=== PATIENT | female | born 1970 | race American Indian/Alaskan Native ===

== ENCOUNTER → 2022-11-14 10:19 | Outpatient (CLI) | payer OTHER, SELFPAY ==
[2022-11-14 11:45] LABS: Appearance Urine UA CLEAR; Bilirubin Urine UA NEGATIVE (NEGATIVE); Color Urine UA YELLOW; Glucose Urine UA NEGATIVE (Negative); Ketones Urine UA NEGATIVE (NEGATIVE); Leukocyte Esterase Urine UA NEGATIVE (NEGATIVE); Nitrite Urine UA NEGATIVE (Negative); Occult Blood Urine UA TRACE-INTACT (Negative); Protein Urine UA 1+ (Negative); Specific Gravity Urine UA 1.025 (1.000-1.035)
[2022-11-14 11:52] LABS: Add Manual Diff / Slide Review NO; Bacteria Urine None Seen; Basophils Absolute Auto 0 /uL (0-100); Basophils Percent Auto 0.4 % (0-2); Culture Indicated Urine Cult Not Indicated; Eosinophils Absolute Auto 200 /uL (0-450); Hematocrit 42.1 % (36-46); Lymphocytes Absolute Auto 2900 /uL (1100-4500); Lymphocytes Percent Auto 41.9 % (25-40); Mean Corpuscular HGB Conc 33.4 % (30-36); Mean Corpuscular Hemoglobin 31.8 PG (26-34); Mean Corpuscular Volume 95.3 fL (80-100); Monocytes Absolute Auto 500 /uL (0-900); Monocytes Percent Auto 7.1 % (3-14); Neutrophils Absolute Auto 3300 /uL (1500-7000); Neutrophils Percent Auto 47.6 % (50-75); Platelet Count 318 X10^3/uL (150-400); RBC Urine None Seen (0-5/HPF); Red Blood Cell Count 4.42 X10^6/uL (4.0-5.2); Red Cell Distribution Width 13.7 % (11.6-14.8); Urine Comments Microscopic Normal; WBC Urine None Seen (0-5/HPF); White Blood Cell Count 6.9 X10^3/uL (4.5-11.0)
[2022-11-14 12:01] LABS: BUN Creatinine Ratio 11.6 (6-22); Blood Urea Nitrogen 10 mg/dL (7-17); Calcium 9.1 mg/dL (8.4-10.2); Carbon Dioxide 31 mmol/L (22-32); Chloride 99 mmol/L (98-107); Estimated Glomerular Filt Rate > 60 mL/min (>60); Glucose 173 mg/dL (70-100); HEMOLYSIS < 15 (0-50); Potassium 4.7 mmol/L (3.4-5.1); Sodium 139 mmol/L (137-145)
== END ==
PROVIDERS: Referring Provider Orthopaedic Surgery; Visit Provider Orthopaedic Surgery
DX: Z01.818 Encounter for other preprocedural examination (principal); Z01.812 Encounter for preprocedural laboratory examination; N39.0 Urinary tract infection, site not specified
CPT/HCPCS: 36415; 80048; 81001; 85025; 93005; 93010

== ENCOUNTER 2022-12-28 08:54 | Inpatient (IN) | payer OTHER, SELFPAY ==
[2022-12-19 08:43] VITALS: BMI 44.6
[2022-12-28] VITALS (10 sets, daily range): BP systolic 90–134; BP diastolic 50–84; PULSE 75–95; RESP 11–26; TEMP 36.3–36.7; O2SAT 95–98; BMI 44.6
--- NOTE | 2022-12-28 06:00 | DI.RAD.S_ITS ---
PROCEDURE: XR SHOULDER LT 1V INDICATIONS: prosthesis placement TECHNIQUE: 1 views of the shoulder were acquired. COMPARISON: None. FINDINGS: Bones: No fractures or dislocations. No suspicious bony lesions. Visualized ribs appear intact. Normal appearance of the left glenohumeral arthroplasty. Soft tissues: No suspicious soft tissue calcifications. IMPRESSION: Uncomplicated left glenohumeral arthroplasty. Dictated by: Lalito Poon M.D. on 12/28/2022 at 16:53 Approved by: Lalito Poon M.D. on 12/28/2022 at 16:54
[2022-12-28] MEDS: CELECOXIB 200 MG CAPSULE PO (09:15)
[2022-12-28] MEDS: PREGABALIN 75 MG CAPSULE PO (09:16)
[2022-12-28] MEDS: ACETAMINOPHEN 325 MG TABLET 975 MG PO (09:16)
[2022-12-28] MEDS: LACTATED RINGERS 1,000 ML 42 ML IV ×2 (09:16→12:57)
[2022-12-28 10:18] LABS: COVID19 -Nasal RAPID Negative (Negative)
--- NOTE | 2022-12-28 11:12 | PM.PREOP ---
Pre-operative Note Interval Note History & Physical reviewed/Exam performed by Physician: Yes Changes to H&P: No
--- NOTE | 2022-12-28 11:20 | SUR.PREOP ---
Block start time [1110] . Monitoring initiated and maintained throughout procedure. Oxygen and medications given per anesthesiologist instructions. Patient remained stable throughout procedure, no adverse reactions noted. Block end time [1120].
[2022-12-28] MEDS: CEFAZOLIN 2 GM/100 ML PREMIX 100 ML IV (11:46)
--- NOTE | 2022-12-28 12:05 | SUR.OPER ---
Beach chair on padded OR bed. Head on gel donut secured with tape over gauze. Non-operative arm secured <90 degrees abduction on padded and taped across chest. Pillow under knees. Safety belt at thigh. Cloth tape over blanket over lower legs.
[2022-12-28] MEDS: TRANEXAMIC ACID 1,000 MG VIAL 1000 MG INJ ×2 (12:10→13:16)
--- NOTE | 2022-12-28 13:20 | PM.OP.1 ---
Operative Date/Time/Diagnoses Date of procedure: 12/28/22 Time of procedure: 13:20 Pre-op diagnosis: Left shoulder rotator cuff arthropathy Post-op diagnosis: same Procedure & Clinicians Procedure: Left reverse total shoulder arthroplasty Same procedure as scheduled: Yes Indications: This is a 52-year-old female who has rotator cuff arthropathy. Symptoms have been present for years, insidious onset. Patient has failed previous rotator cuff repairs and conservative therapy including injections, physical therapy, anti-inflammatories and activity modification. After extensive discussion in clinic, they wished to go forward with surgery. Risks and benefits were described including the risk of infection, bleeding, damage to internal structures including nerves. We also discussed the risk of failure of surgery and the need for revision surgery as well as the risk of anesthesia. The patient expressed understanding with these risks and wished to go forward with surgery. Surgeon: Audi Ballesteros Head Refrigeration Engineer: Lili Arevalo Anesthesia Type: General Operative Notes Findings: Osteoarthritis of the glenoid and humeral head as well as a defient rotator cuff as noted on preoperative imaging and under direct visualization. Glenoid with over 15? of superior inclination. Closure Type: primary Prosthetic devices, grafts, tissues, transplants, or devices: Tornier implants Base plate: 25 mm full wedge (15?) Glenosphere: Standard 36 mm Stem: Perform to Poly: +0 concentric Estimated Blood Loss (mL): 50 Blood products transfused: none Procedure in detail: Patient was seen in the preoperative holding unit. The correct left shoulder was identified and marked with my initials. Again we discussed the risks and benefits of surgery and they wished to go forward with surgery. The patient was brought back to the operating room and placed supine on the operating table. Smooth endotracheal intubation was performed by anesthesia. All prominences were padded and they were placed into the beach chair position. Intravenous antibiotics were given. The left shoulder was then prepped with the standard sterile preparation and draping. A time-out was then performed in my initials were again identified on the correct shoulder. 1 g of IV tranexamic acid was given. A standard deltopectoral incision was made. Skin flaps were made. The cephalic vein was identified and retracted laterally. This was protected throughout the remainder of the case. Sharp dissection was made along the deltoid, subacromial and subcoracoid space to release adhesions. The conjoined tendon was identified and the axillary nerve was palpated and continuous using the tug test. It was protected throughout the remainder of the case. A brown retractor was placed underneath the deltoid muscle and a darach retractor underneath the conjoint tendon. The anterior circumflex artery and associated veins on the lower border of the subscapularis were identified and tied off using 0-Vicryl. The biceps tendon was identified in the bicipital groove. This was released from its sheath, and taken from its origin on the glenoid and tied into the pectoralis tendon for a solid tenodesis. We then began a subscapularis peel. The subscapularis was tagged with an Ethibond suture. A 360 degree circumferential release of the subscapularis was performed with protection of the axillary nerve. The coracohumeral ligament was released at the base of the coracoid. The coracoacromial ligament was left intact. The shoulder was then dislocated. Osteophytes were removed using combination of rongeur and osteotome. The rotator cuff was noted to be insufficient. An intramedullary guide was used set at version of 30?. Using an oscillating saw a conservative humeral head cut was made. Impaction reamers were reamed up to a size 2 stem with a built-in angle 135?. A neck protector was placed. Attention was then turned to the glenoid. After retracting the humeral head posteriorly a circumferential release was performed of the capsule with protection of the axillary nerve. The labrum was then released starting at the biceps anchor and going around the rim a small amount of triceps was released from the inferior glenoid. A center guide pin was then placed using the guide, followed by Reamer. After adequate cartilage was removed the center drill hole was drilled and measured. The base plate was then implanted and screwed into place. The superior drill hole was drilled and filled in a nonlocking fashion, followed by the inferior and anterior holes in locking fashion, the posterior hole was also filled. A 36 standard glenosphere was then selected and screwed into place onto the base plate. Turning back to the humerus, the humeral head was delivered and trialed with a 0 concentric. The arm was taken through range of motion and this was felt to be stable. The trial was then removed and a dilute Betadine wash was then performed with 1 L of sterile saline. Before placing the final implant, drill holes were made in the bicipital groove for the subscapularis repair, and sutures were passed through the drill holes. The final stem was then impacted into the humerus. The shoulder was then reduced and again brought through range of motion and was felt to be stable. The interval was then closed using #2 Ethibond. The subscapularis was then repaired using a modified racking hitch with nice loupes. The deltopectoral interval was then closed with #2 Ethibond. The skin was closed with 2-0 PDS and Monocryl followed by Aquacel dressing. Patient was awoken from anesthesia and brought back to the postoperative recovery unit without issue. They were placed into a sling. Assisting participation: This operation could not have been safely performed (without compromising the technical results or length of the procedure) without the assistance of a skilled email marketing assistant. The email marketing assistant was medically necessary for proper positioning, retraction and manipulation of instruments, proper exposure, graft prep, and manipulation of tissue. Post-operative Condition: stable Disposition: PACU Plan for aftercare: Postoperative instructions: Sling to remain on for 6 weeks. No external rotation past neutral for 6 weeks. Okay for him to come off her shower. Okay to shower over the Aquacel dressing. If any water gets underneath the dressing, remove the dressing. First postoperative visit in 2 weeks.
[2022-12-28] MEDS: BENZOCAINE/MENTHOL 1 LOZ PKT 1 EACH PO (14:31)
[2022-12-28] MEDS: OXYCODONE IR 5 MG TABLET PO (14:53)
== END 2022-12-28 16:00 | disposition home or self-care (01) | DRG 483 ==
PROVIDERS: Admitting Provider Orthopaedic Surgery; Referring Provider Orthopaedic Surgery; Visit Provider Orthopaedic Surgery
PROC: 0RRK00Z Replacement of Left Shoulder Joint with Reverse Ball and Socket Synthetic Substitute, Open Approach (ICD-10-PCS; CPT 23472; principal; 2022-12-28 10:45)
DX: M19.012 Primary osteoarthritis, left shoulder (principal); M75.102 Unspecified rotator cuff tear or rupture of left shoulder, not specified as traumatic; Z20.822 Contact with and (suspected) exposure to COVID-19
CPT/HCPCS: 64450; 73020; 87635; C1776; C9803; J0690; J1100; J2250; J2405; J2704; J3010

== ENCOUNTER → 2024-12-29 07:36 | Outpatient (CLI) | payer OTHER, SELFPAY ==
--- NOTE | 2024-12-29 08:26 | EKG_ITS ---
[facility] [address] [address] Test Date: 2024-12-29 Pat Name: Shana Ponce Department: [facility] Room: Gender: Female Kettle Coordinator: MORENO : 1970 Requested By: Order Number: [id number] Reading MD: Addy Monroy MD Measurements Intervals [place] Rate: 65 P: 35 NC: 140 QRS: -3 QRSD: 72 T: 52 QT: 418 QTc: 434 Interpretive Statements Normal sinus rhythm Electronically Signed On 12-29-2024 8:32:41 PDT by Addy Monroy MD
[2024-12-29 08:45] LABS: Add Manual Diff / Slide Review NO; Basophils Absolute Auto 0 /uL (0-100); Basophils Percent Auto 0.4 % (0-2); Eosinophils Absolute Auto 100 /uL (0-450); Eosinophils Percent Auto 2.5 % (2-4); Hematocrit 41.8 % (36-46); Hemoglobin 13.8 g/dL (12.0-16.0); Lymphocytes Absolute Auto 2300 /uL (1100-4500); Lymphocytes Percent Auto 38.1 % (25-40); Mean Corpuscular Hemoglobin 30.5 PG (26-34); Mean Corpuscular Volume 92.6 fL (80-100); Monocytes Absolute Auto 400 /uL (0-900); Monocytes Percent Auto 6.3 % (3-14); Neutrophils Absolute Auto 3200 /uL (1500-7000); Neutrophils Percent Auto 52.7 % (50-75); Platelet Count 290 X10^3/uL (150-400); Red Blood Cell Count 4.51 X10^6/uL (4.0-5.2); Red Cell Distribution Width 13.4 % (11.6-14.8)
[2024-12-29 08:54] LABS: Hemoglobin A1C% w Est Avg Glu 6.8 % (4.0-6.0)
[2024-12-29 09:04] LABS: Appearance Urine UA CLEAR; Bilirubin Urine UA NEGATIVE (NEGATIVE); Color Urine UA YELLOW; Glucose Urine UA 3+ g/dL (Negative); Ketones Urine UA NEGATIVE (NEGATIVE); Leukocyte Esterase Urine UA NEGATIVE (NEGATIVE); Nitrite Urine UA NEGATIVE (Negative); Occult Blood Urine UA NEGATIVE (Negative); Protein Urine UA NEGATIVE (Negative); Urobilinogen Urine UA 0.2 E.U./dL (0.2)
[2024-12-29 09:05] LABS: pH Urine UA 5.5 (4.5-8.0)
[2024-12-29 09:06] LABS: Urine Volume 10mL (spun)
[2024-12-29 09:07] LABS: Bacteria Urine None Seen; RBC Urine None Seen (0-5/HPF); Squamous Epithelial Cell Urine 1-5 /HPF (0-5/HPF); WBC Urine None Seen (0-5/HPF)
[2024-12-29 09:08] LABS: BUN Creatinine Ratio 14.8 (6-22); Blood Urea Nitrogen 12 mg/dL (7-17); Calcium 9.7 mg/dL (8.4-10.2); Carbon Dioxide 28 mmol/L (22-32); Chloride 104 mmol/L (98-107); Estimated Glomerular Filt Rate > 60 mL/min (>60); Glucose 134 mg/dL (70-99); HEMOLYSIS < 15 (0-50); Potassium 4.7 mmol/L (3.4-5.1); Sodium 139 mmol/L (137-145)
== END ==
LOC: RESP 07:37
PROVIDERS: Referring Provider Orthopaedic Surgery; Visit Provider Orthopaedic Surgery
DX: Z01.818 Encounter for other preprocedural examination (principal); Z01.812 Encounter for preprocedural laboratory examination; R73.9 Hyperglycemia, unspecified; N39.0 Urinary tract infection, site not specified
CPT/HCPCS: 36415; 80048; 81001; 83036; 85025; 93005; 93010

== ENCOUNTER 2025-01-27 07:25 | Day surgery (SDC) | payer OTHER, SELFPAY ==
[2025-01-12 12:28] VITALS: BMI 42.0
[2025-01-27] VITALS (9 sets, daily range): BP systolic 111–157; BP diastolic 72–92; PULSE 74–87; RESP 13–16; TEMP 36.1–37.2; O2SAT 92–99; BMI 42.6
--- NOTE | 2025-01-27 06:00 | DI.RAD.S_ITS ---
PROCEDURE: XR KNEE LT 1TO2V INDICATIONS: LEFT TOTAL KNEE TECHNIQUE: 3 views of the knee were acquired. COMPARISON: None. FINDINGS: Bones: There are no osseous abnormalities. Joints: Total knee prosthesis is anatomically aligned. Effusion and gas seen as expected Soft tissues: Normal IMPRESSION: Total knee prosthesis in anatomic alignment. No complication. Dictated by: Addy Wheatley M.D. on 01/28/2025 at 12:27 Approved by: Addy Wheatley M.D. on 01/28/2025 at 12:28
[2025-01-27] MEDS: VANCOMYCIN 1,000 MG in SODIUM CHLORIDE 0.9% 250 ML 250 MG IV (06:53)
[2025-01-27] MEDS: ACETAMINOPHEN 325 MG TABLET 975 MG PO (07:05)
[2025-01-27] MEDS: FAMOTIDINE 20 MG/2 ML VIAL IV (07:06)
[2025-01-27] MEDS: LACTATED RINGERS 1,000 ML 42 ML IV (07:06)
[2025-01-27] MEDS: SCOPOLAMINE 1 PATCH TOP (07:06)
[2025-01-27] MEDS: CELECOXIB 200 MG CAPSULE 400 MG PO (07:29)
--- NOTE | 2025-01-27 07:32 | PM.PREOP ---
Pre-operative Note Interval Note History & Physical reviewed/Exam performed by Physician: Yes Changes to H&P: No
--- NOTE | 2025-01-27 07:33 | P.OP_ITS ---
Operative Date/Time/Diagnoses Date of procedure: 01/27/25 Time of procedure: 07:33 Pre-op diagnosis: Left knee OA Post-op diagnosis: same Procedure & Clinicians Procedure: Left total knee arthroplasty Same procedure as scheduled: Yes Indications: The patient has had progressively worsening left knee pain with radiographic changes consistent with arthritis. Non-operative management has failed and the patient has requested total knee replacement. The risks, benefits and alternatives to surgery were discussed with the patient prior to proceeding. Risks discussed included, but were not limited to, failure to relieve pain, stiffness, infection, nerve damage, deep venous thrombosis, pulmonary embolism, stroke, coma, heart attack, permanent paralysis and , as well as the potential need for eventual revision of the prosthetic. Surgeon: Simi Bauman Back Roll Lathe Operator: Danial Amaya Anesthesia Type: Spinal and Peripheral nerve block Operative Notes Findings: Severe left knee OA, adequate stability Closure Type: primary Specimen(s): none sent Prosthetic devices, grafts, tissues, transplants, or devices: Bauman and nephdash wilkes BCS2 size 4 left femur, size 3 left tibia, +11 constrained articular insert, 29 x 7.5 mm patella Estimated Blood Loss (mL): 250 Blood products transfused: none Tourniquet time (min): 93 Procedure in detail: The patient was seen in the pre-operative area, where the patient identified the left knee as the operative site and this was marked with my initials. The patient received pre-operative antibiotics, and was taken to the operating room and placed on the operative table in the supine position. After satisfactory anesthesia, a multimedia author out was performed. The left leg was encircled with a tourniquet about the proximal thigh, and the leg was prepared from the toes to the tourniquet with ChloroPrep in the usual fashion and draped through sterile drapes. The leg was elevated and exsanguinated with Eschmark bandage and the tourniquet inflated to [250] mmHg pressure. A PA was used during the procedure and was essential for intraoperative retraction and safe implantation of the components. The knee was approached through an approximately 18 cm incision centered over the patella and carried into the knee through a medial parapatellar arthrotomy. Portion of the medial and lateral meniscus was resected. Soft tissue was carefully mobilized around the patella the patella was measured with a caliper. Bone was resected from the patella and the patellar height was reconstituted with up an appropriate sized patellar component. A cover was then placed on the patella. A small amount of additional medial and lateral meniscus was resected. Pins were placed for Saul assisted robotic knee arthroplasty. The knee was meticulously mapped and a plan was taken and developed to optimize range of motion and stability. The Cori robotic bur was used for the distal femoral resection. It looked like an appropriate distal femoral cut and the cut was made without difficulty. The rotation was assessed and the appropriate size femoral guide was placed on the distal femur and finishing cuts were made. There was no evidence of notching. The anterior, posterior and chamfer cuts were then made. The posterior osteophytes and soft tissues were then removed. The posterior capsule was injected with part of a mixture of 60 ml 0.25% Marcaine mixed with 20 ml Exparel for post operative pain control. The remainder of this mixture was injected into the capsule and subcutaneous tissues during cement curing. The tibial guide was meticulously navigated with the robotic assisted Cori. The tibial cut was made without difficulty. The patient was placed in extension residual medial and lateral meniscus as well as any residual bone was carefully resected. [No] additional tibia was resected. Hemostasis was achieved especially posteriorly. Additional local was injected into the posterior capsule. The extension gap was assessed. The femoral component trial was placed and the notch was finished. Trial tibial and femoral components were then placed and the knee placed through a range of motion. Range of motion was [0-130], with goo d stability throughout the range. Was noted that the knee had significantly loosened in comparison to her plan. I tried a 10 mm and an 11 mm poly and was happier with the 11 m more constrained poly. The trials were then removed, and the tibia was finished. The bone was prepared with pulsatile lavage, and dried with a sponge. Cement was applied and the final prosthetics placed. Excess cement was removed during and after cement curing. A brief Betadine soak was performed. After confirming there was no extruded cement posteriorly, the final tibial insert was placed. The knee was copiously irrigated and the tourniquet deflated. Hemostasis was obtained with the Bovie cautery. The capsule was closed with interrupted # 1 Vicryl suture. The subcutaneous layer was closed with barbed sutures, and the skin with a running 3-0 V-Lock suture and Surgical glue. A justino dressing was applied and the patient was taken to recovery having tolerated the procedure well. Complications: none Post-operative Condition: stable Disposition: same day surgery Plan for aftercare: The patient will be maintained on a standard total knee replacement protocol with weight bearing as tolerated. The patient will receive aspirin and sequential compression devices for DVT prophylaxis. The patient will be discharged home when safe for the home environment.
[2025-01-27] MEDS: CEFAZOLIN 2 GM/100 ML PREMIX 100 ML IV (08:10)
[2025-01-27] MEDS: TRANEXAMIC ACID 1,000 MG VIAL 1000 MG INJ ×2 (08:13→09:53)
--- NOTE | 2025-01-27 08:20 | SUR.OPER ---
Supine on padded OR bed. WEDGE AND Pillow under head, arms secured on padded armboards <90 degree abduction. Safety belt across torso. Non-operative leg secured with tape over blanket over lower leg. Operative leg secured in DeMayo/Bahman/Nathe positioner. Foam padded brace at thigh of operative leg.
[2025-01-27] MEDS: BUPIVACAINE LIPOSOME 266 MG/20 ML VIAL INJ (08:34)
[2025-01-27] MEDS: BUPIVACAINE 0.25% W/ EPI 30 ML VIAL INJ (08:36)
[2025-01-27] MEDS: BENZOCAINE/MENTHOL 1 LOZ PKT 1 EACH PO (12:50)
[2025-01-27] MEDS: OXYCODONE IR 5 MG TABLET PO (12:50)
--- NOTE | 2025-01-27 12:55 | PT.IIE ---
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) Hx of arthroscopic knee surgery Hx of foot surgery (10/20/22) Hx of LASIK (~2005) Medical History (Last Updated 01/12/25 @ 14:19 by Moira Alanis RN) Back spasm COPD (chronic obstructive pulmonary disease) Depression Elevated hemoglobin A1c GERD (gastroesophageal reflux disease) History of COVID-19 (2023) Neck pain Osteoarthritis PTSD (post-traumatic stress disorder) Seasonal allergies Sleep apnea Physical Therapy Inpatient Evaluation/Re-Eval M1 PT/OT-IP Prior Functional Status Start: 01/27/25 13:36 Freq: NEEDED Status: Active Protocol: Document 01/27/25 12:55 AB (Rec: 01/27/25 13:47 AB [id number]) Medical Review Prior Functional Status Medical History No Reviewed Communication able to make needs known Mobility and Gait pt stated that she was independent with all mobilities and ambulation without AD but occasionally uses a SPC depending on how L knee feels Social History Household Members none Living Arrangements House Number of Floors ( One Floor Floors) Number of Stairs To ramp to enter Enter/Railing? Home Environment Standard Height Toilet,Walk in Shower,Built-In Shower Seat Home Equipment Straight Cane,Hand Held Shower,Grab Bars Near Toilet, Grab Bars In Shower Additional Social pt has a standard walker History Comment pt will have her sister to assist her at home M2 PT-IP Current Condition Start: 01/27/25 13:36 Freq: NEEDED Status: Active Protocol: Document 01/27/25 12:55 AB (Rec: 01/27/25 13:47 AB [id number]) Physical Therapy Current Condition Current Condition Evaluation Date 01/27/25 Treatment Diagnosis s/p L TKA; difficulty in walking Onset Date 01/27/25 M3 PT-IP Subjective Start: 06/03/25 13:36 Freq: NEEDED Status: Active Protocol: Document 01/27/25 12:55 AB (Rec: 01/27/25 13:47 AB [id number]) Subjective Physical Therapy Visit Type Type Initial Evaluation Visit Start Time 12:55 Visit Stop Time 13:30 Number of TIRE BEADER MAKER Visits 0 Physical Therapy Visit Comments Patient Comments agreeable to do PT Therapy Pain Assessment Location Left Knee Intensity 1 Scale Used Numeric (0 - 10) Pain Management Distraction,Modification of Treatment,Re-positioning, Techniques Timing of Activity with Medications M4 PT-IP Mobility and Gait Start: 01/27/25 13:36 Freq: NEEDED Status: Active Protocol: Document 01/27/25 12:55 AB (Rec: 01/27/25 13:47 AB [id number]) PT-Bed Mobility Assessment Supine to Sit Supine to Sit Standby Assistance Sit to Supine Sit to Supine Standby Assistance PT-Transfer Assessment Sit to and From Stand Sit to and from Contact Guard Assistance,Minimal Assistance,Moderate Stand Assistance,1 Person Assistance,Use of Upper Extremities Equipment Transfer Assistive Bed Rail,Standard Walker Device Orthotic/Prosthetic No Devices or Brace: Comments Mobility Comments pt seen in PACU. pt sitting on EOB and friend with her. obtained PLOF and home setup. post-op folder provided and reviewed contents with pt. educated on HEP. pt has outpt PT set up. pt has a standard walker. pt completed bed mobility sit<>supine SBA. sit to stand requiring mod A and max cues with posterior LOB. educated pt on sit<>stand techniques and completed x 7 reps. initially requiring min to mod but able to complete CGA after a few repetitions. pt ambulated ~ 30 ft using standard walker CGA. pt sat back on EOB. completed sit<>stand x3 CGA. pt without further concerns. Gait Assessment Gait Gait Assistance Contact Guard Assist Required: Distance (Feet) 30 Able to Maintain Yes Weight Bearing Status During Gait Assistive Devices Assistive Device Gait Belt,Standard Walker Orthotic/Prosthetic No Devices or Brace: Gait Deviations General Gait Pattern Antalgic,Decreased Stride Length,Decreased Feet Clearance,Step-to Gait Factors Limiting Gait Function Factors Limiting Decreased Activity Tolerance,Decreased Strength, Gait Function Difficulty Following Directions,Limited Range of Motion ,Pain,Poor Balance,Poor Safety Awareness PT-Balance Assessment Sitting Balance and Reactions Static Sitting Normal Balance Ability Dynamic Sitting Good Balance Ability Standing Balance and Reactions Static Standing Fair Balance Ability Dynamic Standing Fair Balance Ability Device Used std walker M5 PT-IP Objective Assessments Start: 01/27/25 13:36 Freq: NEEDED Status: Active Protocol: Document 01/27/25 12:55 AB (Rec: 01/27/25 13:47 AB [id number]) Orientation Orientation/Cognition Level of Alertness Alert Orientation Name,Place,Situation Language Function No Deficits Noted Ability Memory Description No Deficits Noted Gross Range of Motion Lower Extremity ROM Assessment Left Impaired Impairments L knee flexion: ~ 70 deg Strength Lower Extremity Strength Assessment Left Impaired Hip 4-/5 Knee 4-/5 Coordination Assessment Gross Coordination Gross Coordination WNL Sensation Assessment Sensation Gross Sensation WNL Muscle Tone Muscle Tone WNL Yes M6 PT-IP Treatment Start: 01/27/25 13:36 Freq: NEEDED Status: Active Protocol: Document 01/27/25 12:55 AB (Rec: 01/27/25 13:47 AB [id number]) Physical Therapy Treatment Exercises Exercises Heel Slides Education Education Provided Precautions,Weight Bearing Status,Post-Op Packet,Safety M7 PT-IP Assessment and Plan Start: 01/27/25 13:36 Freq: NEEDED Status: Active Protocol: Document 01/27/25 12:55 AB (Rec: 01/27/25 13:47 AB [id number]) PT Summary Assessment and Plan Potential Rehabilitation Fair Potential Status of Condition Stable at Evaluation Summary Impairments Pain,ROM,Strength,Balance,Coordination,Sensation,Tone, Cognition,Bed Mobility,Transfers,Gait,Activity Tolerance Assessment Summary pt is a 55 y/o F s/p L TKA POD 0. pt is WBAT on LLE. pt requiring SBA for bed mobility and CGA for transfers and ambulation using a standard walker. pt plans to go home and will have her family to assist her. pt has outpt PT set up. Goals Bed Mobility Goal Independent Transfer Goal Independent,Front Wheeled Walker Gait Goal Independent,Four Wheel Walker Gait Distance 200 Days to Meet Goals 5 Frequency of Treatment Frequency Of Twice a Day Treatment Treatment Plan Physical Therapy Bed Mobility Training,Transfer Training,Gait Training, Treatment Plan Therapeutic Exercise,Balance Retraining,Post Op Education,Discharge Planning,Hot or Cold Pack, Neuromuscular Re-ed,Coordination Retraining,Manual Therapy Weight Bearing Status Weight Bearing Weight Bear as Tolerated Status Allowed Weight LLE WBAT Bearing Amount ( enter % or #) (%) Recommendations To Nursing Amount of Assist 1 Person Assist Needed Discharge Recommendations PT Discharge Home with Assistance,Outpatient PT Recommendations Transportation Needs Private Vehicle at Discharge - PT assist 1
== END 2025-01-27 13:45 | disposition home or self-care (01) ==
LOC: OR 07:25 → AC 07:28
PROVIDERS: Referring Provider Orthopaedic Surgery; Visit Provider Orthopaedic Surgery
PROC: 0SRD0JZ Replacement of Left Knee Joint with Synthetic Substitute, Open Approach (ICD-10-PCS; CPT 27447; principal; 2025-01-27 07:45)
DX: M17.12 Unilateral primary osteoarthritis, left knee (principal); G89.18 Other acute postprocedural pain; M25.762 Osteophyte, left knee
CPT/HCPCS: 27447; 64447; 73560; 97161; 97530; C1776; C1713; J0330; J0666; J0690; J1100; J1885; J2250; J2405; J2704; J3010